=== PATIENT | male | born 1995 | race Caucasian/White ===

== ENCOUNTER → 2019-09-12 | Emergency (ER) | payer MEDICAID ==
[~2019-09-12] VITALS: Ht 182.9 cm; Wt 59.0 kg
[~2019-09-12] MED LIST: KETOROLAC TROMETH 60MG/2ML VIAL IM ONE; methylPREDNISolone SOD SUCC 125 MG/2 ML VL IM ONE
[2019-09-12 18:53] VITALS: BP 100/75
== END | disposition home or self-care (01) ==
LOC: ER 18:20
DX: S43.401A Unspecified sprain of right shoulder joint, initial encounter (principal); K21.9 Gastro-esophageal reflux disease without esophagitis; X50.0XXA Overexertion from strenuous movement or load, initial encounter; Y93.89 Activity, other specified; Y92.89 Other specified places as the place of occurrence of the external cause; Y99.8 Other external cause status
CPT/HCPCS: 73030; 96372; 99284; J1885; J2930